=== PATIENT | male | born 1950 | race African-American/Black ===

== ENCOUNTER 2020-07-30 10:05 | Emergency (ER) | payer MEDICARE, MEDICAID ==
[~2020-07-30] VITALS: Ht 185.4 cm; Wt 86.0 kg
[2020-07-30] MEDS ORDERED: ACETAMINOPHEN 325MG TABLET PO ONE (11:15)
[2020-07-30 11:45] VITALS: BP 168/75
== END 2020-07-30 11:46 | disposition home or self-care (01) ==
LOC: ER 10:05
DX: S00.451A Superficial foreign body of right ear, initial encounter (principal); H92.01 Otalgia, right ear; I10 Essential (primary) hypertension; E05.90 Thyrotoxicosis, unspecified without thyrotoxic crisis or storm; X58.XXXA Exposure to other specified factors, initial encounter; Y93.89 Activity, other specified; Y92.017 Garden or yard in single-family (private) house as the place of occurrence of the external cause
CPT/HCPCS: 69200; 99284